=== PATIENT | female | born 1990 | race Caucasian/White ===

== ENCOUNTER 2018-02-03 00:35 | Emergency (ER) | payer BC | END 2018-02-03 03:28 | disposition home or self-care (01) | LOC: FTE 00:35 | DX: S40.811A Abrasion of right upper arm, initial encounter (principal); S00.81XA Abrasion of other part of head, initial encounter; V49.50XA Passenger injured in collision with unspecified motor vehicles in traffic accident, initial encounter | CPT/HCPCS: 99282 ==